=== PATIENT | female | born 1980 | race Hispanic/Latino ===

== ENCOUNTER 2018-04-02 18:41 | Emergency (ER) | payer BC, MEDICAID | END 2018-04-02 20:08 | disposition home or self-care (01) | LOC: EDH 18:41 | DX: S16.1XXA Strain of muscle, fascia and tendon at neck level, initial encounter (principal); R07.89 Other chest pain; R07.81 Pleurodynia; V29.49XA Motorcycle driver injured in collision with other motor vehicles in traffic accident, initial encounter; Y93.89 Activity, other specified; Y92.89 Other specified places as the place of occurrence of the external cause; Y99.8 Other external cause status | CPT/HCPCS: 71111; 81025 ==

== ENCOUNTER 2022-07-27 10:07 | Observation (INO) | payer BC ==
[~2022-07-27] VITALS: Ht 157.5 cm; Wt 81.9 kg
[2022-07-27 10:52] LABS: BASOPHILS % (AUTO) 0.9 % (0.0-5.0); EOSINOPHILS % (AUTO) 1.6 % (0.0-8.0); HEMATOCRIT 23.4 % (36-48); LYMPHOCYTES % (AUTO) 29.3 % (21.0-51.0); MEAN CORPUSCULAR HEMOGLOBIN 15.2 pg (27.0-33.0); MEAN CORPUSCULAR HGB CONC 25.2 g/dL (32.0-36.0); MEAN CORPUSCULAR VOLUME 60.3 fL (79-99); MONOCYTES % (AUTO) 13.4 % (3.0-13.0); NEUTROPHILS % (AUTO) 54.6 % (40.0-77.0); PLATELET COUNT (AUTO) 253 K/uL (130-400); RED BLOOD CELL COUNT(AUTO) 3.88 MIL/uL (4.00-5.50); RED CELL DISTRIBUTION WIDTH 22.4 % (11.0-15.5); WHITE BLOOD COUNT (AUTO) 4.3 K/uL (4.8-10.8)
[2022-07-27 10:54] LABS: CREATININE 0.7 mg/dL (0.5-1.5); POTASSIUM 3.6 mmol/L (3.5-5.1)
[2022-07-27 10:59] LABS: TOTAL PROTEIN, SERUM 7.6 g/dL (6.0-8.3)
[2022-07-27 14:05] LABS: % IRON SATURATION 2.5 % (22-44)
[2022-07-27 17:39] LABS: BASOPHILS % (AUTO) 1.1 % (0.0-5.0); EOSINOPHILS % (AUTO) 1.5 % (0.0-8.0); HEMATOCRIT 25.1 % (36-48); LYMPHOCYTES % (AUTO) 30.8 % (21.0-51.0); MEAN CORPUSCULAR HEMOGLOBIN 16.6 pg (27.0-33.0); MEAN CORPUSCULAR HGB CONC 26.3 g/dL (32.0-36.0); MEAN CORPUSCULAR VOLUME 63.2 fL (79-99); MONOCYTES % (AUTO) 11.9 % (3.0-13.0); NEUTROPHILS % (AUTO) 54.5 % (40.0-77.0); PLATELET COUNT (AUTO) 227 K/uL (130-400); RED BLOOD CELL COUNT(AUTO) 3.97 MIL/uL (4.00-5.50); WHITE BLOOD COUNT (AUTO) 4.6 K/uL (4.8-10.8)
[2022-07-27 21:45] VITALS: BP 148/81
[2022-07-27 22:57] LABS: APPEARANCE,URINE CLEAR (CLEAR); BILIRUBIN,URINE NEGATIVE (NEGATIVE); COLOR,URINE LIGHT-YELLOW (YELLOW); GLUCOSE, URINE (UA) NEGATIVE (NEGATIVE); KETONES,URINE NEGATIVE (NEGATIVE); LEUKOCYTE ESTERASE ,URINE 250 Leu/uL (NEGATIVE); NITRATE,URINE 1+ (NEGATIVE); OCCULT BLOOD,URINE NEGATIVE (NEGATIVE); PROTEIN,URINE NEGATIVE (NEGATIVE); UROBILINOGEN,URINE 0.2 mg/dL (0.2-1.0)
[2022-07-27 22:59] LABS: HCG,QUALITATIVE URINE NEGATIVE (NEGATIVE)
[2022-07-27 23:02] LABS: BACTERIA,URINE RARE /HPF (None Seen); MUCUS,URINE RARE LPF (None Seen); RBC,URINE 0-1 /HPF (0-1); SQUAMOUS EPITHELIAL CELL,UR RARE /HPF (0-2)
[2022-07-28] VITALS: BP 127/83
[2022-07-28 04:00] VITALS: BP 122/72
[2022-07-28 05:08] LABS: EOSINOPHILS % (AUTO) 2.9 % (0.0-8.0); HEMATOCRIT 27.6 % (36-48); LYMPHOCYTES % (AUTO) 30.7 % (21.0-51.0); MEAN CORPUSCULAR HEMOGLOBIN 17.9 pg (27.0-33.0); MEAN CORPUSCULAR HGB CONC 27.2 g/dL (32.0-36.0); MEAN CORPUSCULAR VOLUME 65.7 fL (79-99); NEUTROPHILS % (AUTO) 51.2 % (40.0-77.0); PLATELET COUNT (AUTO) 216 K/uL (130-400); RED CELL DISTRIBUTION WIDTH 26.7 % (11.0-15.5); WHITE BLOOD COUNT (AUTO) 4.8 K/uL (4.8-10.8)
[2022-07-28 05:20] LABS: CREATININE 0.8 mg/dL (0.5-1.5); POTASSIUM 3.9 mmol/L (3.5-5.1)
[2022-07-28 08:00] VITALS: BP 116/68
[2022-07-28] MEDS ORDERED: PANTOPRAZOLE 40 MG/VIAL IVP SCH (09:00)
[2022-07-28] MEDS ORDERED: IRON SUCROSE COMPLEX 100 MG/5 ML VIAL IVP SCH (09:00)
[2022-07-28] MEDS ORDERED: IRON SUCROSE COMPLEX 100 MG in 0.9%NACL 50ML 50 ML IV SCH (09:00)
[2022-07-28] MEDS ORDERED: Vitamin B Complex/Vit C/Folic Acid PO SCH (09:00)
[2022-07-28 10:23] LABS: HEMATOCRIT 28.4 % (36-48)
[2022-07-28 11:18] VITALS: BP 118/64
[2022-07-28 16:00] VITALS: BP 112/71
[2022-07-28] MEDS ORDERED: AMOX1TAB16 PO (16:34)
[2022-07-28] MEDS ORDERED: FERS325 PO (16:34)
== END 2022-07-28 17:45 | disposition home or self-care (01) ==
LOC: EDH 10:07 → EDHIP 12:22 → INTOOBSV 12:22 → 4DH 21:43
PROVIDERS: ADMIT Internal Medicine; ATTEND Internal Medicine
DX: D50.9 Iron deficiency anemia, unspecified (principal); N92.0 Excessive and frequent menstruation with regular cycle; Z98.891 History of uterine scar from previous surgery; Z79.899 Other long term (current) drug therapy
CPT/HCPCS: 36430; 99285; 80050; 83540; 83550; 84703; 82728; 85025 ×2; 86850; 86900; 86901; 86923 ×2; 87077; 87088; 87186; 82270; 81001; 81025; 36415 ×2; 76856; 96374; 96375; 80048; 85014; 85018; P9016 ×2; G0378 ×6; J1756; C9113; 80053; 84443

== ENCOUNTER → 2023-01-09 | Outpatient (CLI) | payer BC ==
[~2023-01-09] MED LIST: AMOX1TAB16 PO; FERS325 PO
== END | disposition home or self-care (01) ==
LOC: RAH 15:38
PROVIDERS: ATTEND Obstetrics & Gynecology
DX: Z12.31 Encounter for screening mammogram for malignant neoplasm of breast (principal)
CPT/HCPCS: 77067